=== PATIENT | male | born 1940 | race Caucasian/White ===

== ENCOUNTER 2017-08-11 08:56 | Inpatient (IN) | payer OTHER, MEDICARE ==
[~2017-08-11] VITALS: Ht 180.3 cm; Wt 113.7 kg
--- NOTE | ~2017-08-11 | EKG ---
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
--- NOTE | ~2017-08-11 | HC ---
[facility] [place] [address] CONSULTATION Name: KASEY SHER Room #: 361-P [facility] IN M.R.#: [id number] Admission: 08/11/17 Attend Phys: Elvie Kennedy Discharge: Date of : 42 Report #: [id number] THIS REPORT FOR: //name// CC: Elvie Mejía DATE OF SERVICE: 08/11/2017 CONSULTATION: Infectious diseases. HISTORY OF PRESENT ILLNESS: The patient is a 76-year-old gentleman admitted to the hospital this evening with complaint of dysuria, frequency and fever. This was associated with a cough, chest pain and also some redness of his left lower extremity. The patient was noted to be somewhat delirious and has nausea without any vomiting with some abdominal pain. In the ER, there was evidence of urinary tract infection and sepsis. The patient was admitted to the hospital and Infectious Disease consultation was requested. PAST MEDICAL HISTORY: Significant for diabetes with hypertension and hyperlipidemia. The patient has a past history of pneumonia and subdural hematoma. He has Parkinson's disease. PAST SURGICAL HISTORY: Includes appendectomy, cholecystectomy, craniotomy, coronary artery bypass grafting and coronary angioplasty. ALLERGIES: The patient has no drug allergies. MEDICATION RECONCILIATION: The patient's current medication include Tylenol 650 p.r.n., enteric-coated aspirin 81 mg at bedtime, Sinemet 25/250 two tablets q.i.d., Coreg 25 mg b.i.d., Rocephin 2 grams IV daily, p.r.n. glucagon, dextrose glucose, insulin lispro 10 units subcutaneous, morphine p.r.n., nitroglycerin p.r.n., Zofran p.r.n., MiraLax p.r.n., Brilinta 90 mg b.i.d., zolpidem 5 mg at bedtime p.r.n. FAMILY HISTORY: Noncontributory. 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 No history of alcohol. He says he quit smoking 40 years ago. REVIEW OF SYSTEMS: The patient notes fevers, chills, sweats, weakness, malaise. He is unaware of delirium or depressed mental status. The patient denies headache, sinus congestion, sore throat, trouble swallowing. The patient is not having any current chest pain, no history of angina, syncope. GASTROINTESTINAL: The patient has nausea, no vomiting, no abdominal pain. GENITOURINARY: The patient has frequency and dysuria. EXTREMITIES: [place] [address] CONSULTATION Name: KASEY SHER Room #: 361-P [facility] IN [facility].#: [id number] Admission: 08/11/17 Attend Phys: Elvie Kennedy Discharge: Date of : 42 Report #: [id number] PHYSICAL EXAMINATION: GENERAL: The patient appears his stated age, alert, oriented, comfortable, not in any distress. VITAL SIGNS: Showed temperature 37.7. SKIN: Shows chronic venous stasis changes. There is some mild erythema and warmth in the left lower extremity in the gaiter area. ENT: Negative. NECK: Supple. HEART: Sounds S1, S2. Regular rate and rhythm. LUNGS: Clear. ABDOMEN: Belly obese, soft, nontender. Flanks are nontender. No abdominal mass, no organomegaly. GENITOURINARY: The patient has a diaper because of urinary incontinence. NEUROLOGIC: The patient is mentally awake, alert and appropriate. LABORATORY DATA: White count was 18.2 with 6% bands, hemoglobin 12, hematocrit 35%, platelets 130,000. Electrolytes were normal, BUN 29, creatinine 1.1. Liver function tests are normal. Glucose ranged from 115 to 190. The urinalysis does show 16 to 25 white cells, positive nitrites, leukocyte esterase, and greater than 30 bacteria on the microscopic dipstick. The chest x-ray shows minimal atelectasis. IMPRESSION: 1. Urinary tract infection with fever and delirium. 2. Mild cellulitis, left lower leg. 3. Angina, resolved. The patient has been started on Rocephin, which is appropriate. I would like to add a single dose of gentamicin pending results of urine and blood cultures. Should the patient develop more fever, we can repeat blood cultures, I want to do a followup CBC and BMP in the morning. I would like to check coagulation studies because of the sepsis. I anticipate the patient will improve with intensive antibiotic therapy. After we have results of the urine culture, we may be able to streamline antibiotic therapy. I appreciate the opportunity of input in the care of this pleasant gentleman. Thank you for requesting Infectious Disease input. By: [id number] Dieter Umaña MD /erika
[~2017-08-11 08:56] MED LIST: ALLERGY REL1 MG/1 ML PO; ANTIFUNGAL30 GM TP; APAP500 PO; APIDRA PO; ASPIRIN81 M2 PO; B12INJ PO; BRILINTA90 MG PO; CALCIUM 600 +1 EAC1 PO; CARBIDOPA-LEVO1 EAC5 PO; CLARINEX5 MG PO; COREG25 MG PO; GLIPIZIDE XL5 MG PO; GLUCOPHAGE850 MG PO; GLUCOTROL5 MG PO; IMDUR 30 MG TAB30 M1 PO; IMDUR 60 MG TAB60 M1 PO; INDAPAMIDE1.25 MG PO; K-DUR 20 MEQ T20 MEQ PO; KEFLEX500 MG PO; LEVEMIR SUBQ; LIPITOR 20 MG T20 M1 PO; LODOSYN 25 MG T25 M1 PO; LOTENSIN20 MG PO; LOTREL 10-40 M1 EACH PO; MINITRAN1 EAC1 TOP; MIRAPEX1 MG PO; MOBIC7.5 MG PO; NITROSTAT0.4 M1 SUBLING; NORCO 5-325 TA1 EACH PO; NOVOLOG100 UNIT/1 SUBQ; PENICILLIN V P500 MG PO; POTASSIUM20 PO; RANEXA500 MG PO; TAMSULOSIN HCL0.4 MG PO; TOPROL XL100 MG PO; TRAMADOL 50 MG50 MG PO; TRESIBA FL100 UNIT/1 SUBQ; VICTOZA0.6 MG/0.1 SQ; VITAMIN D32000 UNI1 PO; ZOCOR40 MG PO; ZOFRAN4 MG PO
[2017-08-11 09:01] VITALS: BP 145/65
[2017-08-11 10:00] LABS: HEMATOCRIT 35.4 % (42.0-52.0); MCH 31.8 pg (26.0-34.0); MCV 93.5 fL (80.0-100.0); PLATELET COUNT 130 thou/uL (150-400); RBC 3.78 mil/uL (4.50-6.00); RDW 13.8 % (10.5-14.5); WBC 18.2 thou/uL (4.0-11.0)
[2017-08-11 10:01] LABS: MANUAL DIFF YES
[2017-08-11 10:08] LABS: CALCIUM 8.8 mg/dL (8.5-10.1); CREATININE 1.1 mg/dL (0.7-1.3); POTASSIUM 4.7 mmol/L (3.5-5.1)
[2017-08-11 10:14] LABS: ALBUMIN 3.5 g/dL (3.4-5.0); TOTAL BILIRUBIN 0.6 mg/dL (<0.1-1.0); TOTAL PROTEIN 6.6 g/dL (6.4-8.2)
[2017-08-11 10:30] LABS: ABSOLUTE NEUTROPHILS 16.4 thou/uL (1.4-8.2); PLATELET ESTIMATE NORMAL; TOTAL CELL COUNT 100
[2017-08-11 10:30] LABS: URINE BILIRUBIN NEGATIVE (Negative); URINE BLOOD 1+ (Negative); URINE COLOR YELLOW; URINE GLUCOSE-RANDOM* NEGATIVE (Negative); URINE KETONES NEGATIVE (Negative); URINE NITRITE POSITIVE (Negative); URINE PROTEIN (DIPSTICK) NEGATIVE (Negative); URINE SPECIFIC GRAVITY 1.015 (1.005-1.035); URINE UROBILINOGEN 0.2 E.U./dl (0.2-1.0)
[2017-08-11 10:39] LABS: BACTERIA >30 Many /HPF (None Seen); CASTS None Seen /LPF (None Seen); CRYSTALS None Seen /LPF (None Seen); SQUAMOUS None Seen /LPF (0-3); URINE RBC 3-10 Few /HPF (0-2)
[2017-08-11 10:48] VITALS: BP 138/66
[2017-08-11 11:19] VITALS: BP 138/70
[2017-08-11 11:48] LABS: ABG SAMPLE TYPE ARTERIAL; BE(vivo) 0.5 mmol/L (-2 to +3); HCO3 23.9 mmol/L (22.0-26.0); LACTATE 1.45 mmol/L (0.5-2.0); O2(CT) 15.3 mL/dL (15.0-23.0); O2Hb 93.5 % (92.0-98.0); PCO2 34.1 mmHg (35.0-45.0); PO2 75.1 mmHg (80.0-100.0); pH 7.463 (7.360-7.450); sO2 95.9 % (92.0-98.0); tCO2 24.9 mmol/L (24.0-30.0)
[2017-08-11 11:49] LABS: STICK SITE L.RADIAL
[2017-08-11 12:04] VITALS: BP 152/75
[2017-08-11 15:51] VITALS: BP 171/73
[2017-08-11 19:17] VITALS: BP 101/36
[2017-08-12 04:30] VITALS: BP 150/47
[2017-08-12 06:32] LABS: HEMATOCRIT 32.2 % (42.0-52.0); HEMOGLOBIN 10.9 gm/dL (14.0-18.0); MCH 31.9 pg (26.0-34.0); MCHC 33.9 g/dL (28.0-37.0); MCV 94.2 fL (80.0-100.0); PLATELET COUNT 111 thou/uL (150-400); RBC 3.42 mil/uL (4.50-6.00); RDW 14.3 % (10.5-14.5); WBC 12.7 thou/uL (4.0-11.0)
[2017-08-12 06:37] LABS: MANUAL DIFF YES
[2017-08-12 06:44] LABS: APTT 44.4 Seconds (24.5-32.8); PROTIME 10.7 Seconds (9.3-11.4)
[2017-08-12 06:51] LABS: CALCIUM 8.1 mg/dL (8.5-10.1); CREATININE 0.8 mg/dL (0.7-1.3); POTASSIUM 3.9 mmol/L (3.5-5.1)
[2017-08-12 07:25] LABS: ABSOLUTE NEUTROPHILS 11.4 thou/uL (1.4-8.2); PLATELET ESTIMATE NORMAL; TOTAL CELL COUNT 100
[2017-08-12 20:45] VITALS: BP 161/56
[2017-08-13 05:10] VITALS: BP 179/59
[2017-08-13 05:48] LABS: HEMATOCRIT 34.9 % (42.0-52.0); HEMOGLOBIN 11.8 gm/dL (14.0-18.0); MCH 31.8 pg (26.0-34.0); MCHC 33.8 g/dL (28.0-37.0); MCV 93.9 fL (80.0-100.0); PLATELET COUNT 126 thou/uL (150-400); RBC 3.72 mil/uL (4.50-6.00); RDW 13.9 % (10.5-14.5)
[2017-08-13 05:56] LABS: MANUAL DIFF YES
[2017-08-13 06:04] LABS: CALCIUM 8.6 mg/dL (8.5-10.1); CREATININE 0.8 mg/dL (0.7-1.3); POTASSIUM 3.9 mmol/L (3.5-5.1)
[2017-08-13 07:15] VITALS: BP 176/51
[2017-08-13 07:40] LABS: ABSOLUTE NEUTROPHILS 6.6 thou/uL (1.4-8.2); ATYPICAL LYMPHS 1 %; TOTAL CELL COUNT 100
[2017-08-13] MEDS ORDERED: CEFUROXIME500 MG PO (09:54)
[2017-08-13 10:18] VITALS: BP 176/51
== END 2017-08-13 12:01 | disposition home or self-care (01) | DRG 871 ==
LOC: ER 08:56 → EROBS 10:46 → 3W 10:46 → ENTRNSPT 08-13 11:17 → EDTRNSPTSTS 08-13 11:22 → 3W 08-13 12:01
PROVIDERS: Hospitalist; Internal Medicine Infectious Disease; Physician Assistant
DX: A41.9 Sepsis, unspecified organism (principal); G93.40 Encephalopathy, unspecified; N39.0 Urinary tract infection, site not specified; L03.116 Cellulitis of left lower limb; G20 Parkinson's disease; I10 Essential (primary) hypertension; E78.5 Hyperlipidemia, unspecified; G47.33 Obstructive sleep apnea (adult) (pediatric); E11.9 Type 2 diabetes mellitus without complications; I20.9 Angina pectoris, unspecified; Z95.1 Presence of aortocoronary bypass graft; Z90.49 Acquired absence of other specified parts of digestive tract; Z95.5 Presence of coronary angioplasty implant and graft; Z79.899 Other long term (current) drug therapy
CPT/HCPCS: 10879

== ENCOUNTER → 2017-09-03 | Outpatient (CLI) | payer OTHER, MEDICARE ==
[~2017-09-03] MED LIST changes: +CEFUROXIME500 MG PO; +FLOMAX0.4 MG PO; +KEFLEX500 M1 PO
== END ==
LOC: SLEEPLAB 11:23
DX: G47.33 Obstructive sleep apnea (adult) (pediatric) (principal)

== ENCOUNTER 2017-11-16 11:24 | Inpatient (IN) | payer OTHER, MEDICARE ==
[~2017-11-16] VITALS: Ht 160 cm; Wt 112.9 kg
--- NOTE | ~2017-11-16 | EKG ---
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
[~2017-11-16 11:24] MED LIST changes: -FLOMAX0.4 MG PO; -KEFLEX500 M1 PO
[2017-11-16 11:34] VITALS: BP 140/65
[2017-11-16 12:37] LABS: ABSOLUTE NEUTROPHILS 11.5 thou/uL (1.4-8.2); BASOPHILS 0.2 % (0.0-2.0); EOSINOPHILS 0.2 % (0.0-3.0); HEMATOCRIT 37.6 % (42.0-52.0); HEMOGLOBIN 12.7 gm/dL (14.0-18.0); LYMPHOCYTES 3.3 % (24.0-44.0); MCH 31.6 pg (26.0-34.0); MCHC 33.8 g/dL (28.0-37.0); MCV 93.3 fL (80.0-100.0); MONOCYTES 5.6 % (1.0-8.0); PLATELET COUNT 100 thou/uL (150-400); POLYS 90.7 % (36.0-66.0); RBC 4.03 mil/uL (4.50-6.00); RDW 13.9 % (10.5-14.5); WBC 12.7 thou/uL (4.0-11.0)
[2017-11-16 12:47] LABS: ANION GAP 9 mmol/L (7-16); BUN 29 mg/dL (7-18); CALCIUM 9.1 mg/dL (8.5-10.1); CHLORIDE 100 mmol/L (98-107); CO2 25 mmol/L (21-32); CREATININE 1.1 mg/dL (0.7-1.3); GLUCOSE 185 mg/dL (74-106); POTASSIUM 4.6 mmol/L (3.5-5.1); SODIUM 134 mmol/L (136-145)
[2017-11-16 12:55] LABS: ALBUMIN 3.6 g/dL (3.4-5.0); SGOT 16 U/L (15-37); SGPT 15 U/L (30-65); TOTAL BILIRUBIN 0.7 mg/dL (<0.1-1.0); TOTAL PROTEIN 6.7 g/dL (6.4-8.2); TROPONIN-I < 0.04 ng/mL (<0.06)
[2017-11-16 13:23] LABS: URINE BILIRUBIN NEGATIVE (Negative); URINE BLOOD NEGATIVE (Negative); URINE COLOR YELLOW; URINE GLUCOSE-RANDOM* TRACE (Negative); URINE KETONES TRACE (Negative); URINE LEUKOCYTES 3+ (Negative); URINE NITRITE NEGATIVE (Negative); URINE PROTEIN (DIPSTICK) TRACE (Negative); URINE SPECIFIC GRAVITY 1.025 (1.005-1.035); URINE UROBILINOGEN 0.2 E.U./dl (0.2-1.0)
[2017-11-16 13:27] LABS: URINE CLARITY SL CLOUDY
[2017-11-16 13:39] LABS: CASTS None Seen /LPF (None Seen); SQUAMOUS 0-3 Few /LPF (0-3)
[2017-11-16 13:40] LABS: BACTERIA >30 Many /HPF (None Seen); CRYSTALS None Seen /LPF (None Seen); URINE RBC None Seen /HPF (0-2); URINE WBC >25 Many /HPF (0-5)
[2017-11-16 13:41] LABS: WBC CLUMPS Occasional (None Seen)
[2017-11-16 15:08] VITALS: BP 115/49
[2017-11-16 15:22] VITALS: BP 118/47
[2017-11-16 16:30] VITALS: BP 129/60
[2017-11-16 20:00] VITALS: BP 131/58
[2017-11-17 03:31] LABS: CALCIUM 8.7 mg/dL (8.5-10.1); CREATININE 0.7 mg/dL (0.7-1.3); POTASSIUM 4.2 mmol/L (3.5-5.1)
[2017-11-17 04:22] VITALS: BP 147/67
[2017-11-17 07:33] LABS: HEMATOCRIT 33.8 % (42.0-52.0); HEMOGLOBIN 11.5 gm/dL (14.0-18.0); MCH 31.7 pg (26.0-34.0); MCV 93.2 fL (80.0-100.0); RBC 3.62 mil/uL (4.50-6.00); RDW 13.8 % (10.5-14.5); WBC 9.5 thou/uL (4.0-11.0)
[2017-11-17 18:19] VITALS: BP 155/54
[2017-11-17 19:34] VITALS: BP 126/48
[2017-11-18 04:21] VITALS: BP 168/56
[2017-11-18 07:30] VITALS: BP 137/74
[2017-11-18] MEDS ORDERED: KEFLEX500 M1 PO (08:24)
[2017-11-18] MEDS ORDERED: FLOMAX0.4 MG PO (08:32)
[2017-11-18 10:25] VITALS: BP 137/74
== END 2017-11-18 13:08 | disposition home or self-care (01) | DRG 871 ==
LOC: ER 11:24 → 4E 14:05 → EROBS 14:05 → 4E 15:26 → ENTRNSPT 11-18 11:30 → EDTRNSPTSTS 11-18 11:32 → 4E 11-18 13:08
PROVIDERS: Hospitalist; Nurse Practitioner Family
DX: A41.9 Sepsis, unspecified organism (principal); G93.40 Encephalopathy, unspecified; N39.0 Urinary tract infection, site not specified; G20 Parkinson's disease; I10 Essential (primary) hypertension; E78.5 Hyperlipidemia, unspecified; E11.9 Type 2 diabetes mellitus without complications; I25.10 Atherosclerotic heart disease of native coronary artery without angina pectoris; Z95.5 Presence of coronary angioplasty implant and graft; Z95.1 Presence of aortocoronary bypass graft; Z90.49 Acquired absence of other specified parts of digestive tract; Z79.82 Long term (current) use of aspirin; Z79.899 Other long term (current) drug therapy
CPT/HCPCS: 10183

== ENCOUNTER 2018-07-23 09:54 | Inpatient (IN) | payer OTHER, MEDICARE ==
[~2018-07-23] VITALS: Ht 180.3 cm; Wt 105.7 kg
--- NOTE | ~2018-07-23 | H ---
[facility] [place] [address] HISTORY AND PHYSICAL Name: KASEY SHER Room #: 516-1 ADM IN ..#: [id number] Admission: 07/24/18 Attend Phys: Saurabh Gold MD Discharge: Date of : 42 Report #: [id number] THIS REPORT FOR: //name// CC: Saurabh Ray DATE OF SERVICE: 07/24/2018 POSTADMISSION PHYSICIAN EVALUATION HISTORY OF PRESENT ILLNESS: Please see Dr. Renetta Angeles's full dictation. The patient was originally treated at [facility], was noted to have severe lumbar spinal stenosis with lumbar radiculopathy and bilateral lower extremity weakness. He underwent L3 through L4 and L4 through L5 bilateral laminectomies, foraminotomies, and diskectomies on 07/21/2018 at [facility]. His course was complicated by premorbid Parkinson's disease as well as diabetes mellitus type 2 with peripheral neuropathy. He did have urinary retention postoperatively and is status post Roche catheter placement. He has had an overall significant decline in his functional independence and had been ambulatory without gait aids up until about a month prior to his surgery. He then began using the walker when is having more and more problems with his overall functional mobility and ADLs. He continues to have a significant decline and has now been admitted for acute in-hospital inpatient rehabilitation. PAST MEDICAL HISTORY: Parkinson's disease, lumbar spinal disease, obstructive sleep apnea, GERD, retinal detachment in 2016, blind left eye, had a subdural hematoma in 2008, diabetes mellitus type 2, and peripheral neuropathy. Past surgical history is as noted along with habits, code status, and allergies. MEDICATIONS: Please see the full medication listing. This includes vitamins, herbals, and supplements. SOCIAL HISTORY: As above. PHYSICAL EXAMINATION: GENERAL: A pleasant, obese white male in no obvious distress. Weight 233 pounds, respirations 18, blood pressure noted to be 171/55. VITAL SIGNS: Temperature 98.1. He is alert and oriented, follows basic 1 step commands. He is on room air. Some evidence of masked facies. EOMs otherwise appeared full. Facies were symmetric. CHEST: Sounded clear to auscultation. CARDIOVASCULAR: Regular rate and rhythm. ABDOMEN: Obese. He does have morbid obesity, bowel sounds are positive, soft, nontender. He has the indwelling Roche catheter. [facility] [address] [place] [address] HISTORY AND PHYSICAL Name: KASEY SHER Room #: 516-1 ADM IN .R.#: [id number] Admission: 07/24/18 Attend Phys: Saurabh Gold MD Discharge: Date of : 41 Report #: [id number] NEUROLOGIC: I had him rolled onto his left side with assistance and the back incision is fairly small and appears to be intact. It is open to the air. There is no drainage. No evidence of erythema. Lower extremities, functional range of motion. Strength is probably grade 3+ to 4-/5. Upper extremities functional range of motion, strength is grade 4-/5. He does have some cogwheeling elbows and wrists and has some resting tremor. ASSESSMENT: A 77-year-old white male with the following problem list: 1. Severe lumbar spinal stenosis with lumbar radiculopathy with bilateral lower extremity weakness. 2. Status post L3 through L4 and L4 through L5 bilateral laminectomies, foraminotomies, and diskectomies on 07/21/2018 at [facility]. 3. Parkinson's disease. He is on Sinemet. 4. Diabetes mellitus with peripheral neuropathy. 5. Hypertension. 6. Coronary artery disease. 7. Urinary retention, status post Roche catheter. 8. Obstructive sleep apnea. 9. Obesity. 10. Legally blind left eye. PLAN: The patient is admitted for acute in-hospital inpatient rehabilitation. From a postadmission physician evaluation perspective, there are no relevant changes since the preadmission screening. See the above review of prior and current medical and functional conditions and comorbidities. Please see the patient's previous and current functional status. As far as risk of complications, he has the multiple medical comorbidities as noted above. Initial plan of care involves the interdisciplinary acute inpatient rehabilitation program with the goal of maximizing the patient's functional independence, so he can hopefully return back to his prior living situation. Measurable functional goals would be for the patient to become modified independent with transfers, mobility, ADLs, so that he can return back to the home setting. Goals to be up with the walker. Prognosis is reasonably good with estimated length of stay probably 10 days to 2 weeks and likely longer if warranted. Potential barriers would include his multiple medical comorbidities and decreased functional status. The patient meets diagnostic criteria for an acute in-hospital inpatient rehabilitation stay. He meets the medical necessity criteria and we will have the managed services consultant physicians continue to follow. He does have the tolerance for therapies and has appropriate discharge goals back to the home setting. <ELECTRONICALLY SIGNED> By: Saurabh Gold MD 07/31/18 1454 0903 0942 Suarabh Gold MD /nt
--- NOTE | ~2018-07-23 | PLAN ---
[facility] [address] [place] [address] REHAB UNIT PLAN OF CARE Name: KASEY SHER Room #: 516-1 ADM IN M.R.#: [id number] Admission: 07/24/18 Attend Phys: Saurabh Gold MD Discharge: Date of : 41 Report #: [id number] THIS REPORT FOR: //name// CC: Saurabh Ray DATE OF SERVICE: 07/26/2018 PROGRESS NOTE AND OVERALL PLAN OF CARE SUBJECTIVE: The patient was seen earlier. Last recorded temperature was 36.6, pulse was 70, respirations 18, and blood pressure was 140/70. He was groggy, but cooperative. He has been working in therapies with transfers, max assist of 2, bed to wheelchair. He has not been ambulatory. Bed mobility has been max assist of 2. In occupational therapy, lower body dressing is max assist. He does have a tremor with his Parkinson's. He is significantly obese. ASSESSMENT: 1. Severe lumbar spinal stenosis with lumbar radiculopathy with bilateral lower extremity weakness. 2. Status post L3 through L4 and L4 through L5 bilateral laminectomies, foraminotomies, and diskectomies on 07/21/2018 at [facility]. 3. Parkinson's disease. 4. Diabetes mellitus with peripheral neuropathy. 5. Hypertension. 6. Coronary artery disease. 7. Urinary retention, status post Roche catheter. 8. Obstructive sleep apnea. 9. Obesity. 10. Legally blind, left eye. PLAN: Roche was actually found on the floor and he is now starting to try to void. This is being monitored. The hospitalist service is involved. The overall plan of care is based on the preadmission screen, post-admission physician evaluation, and information garnered from therapy assessments. 1. Estimated length of stay is probably 2-3 weeks as he is at a significantly lower functional level. 2. Medical prognosis is reasonably good. 3. Anticipated interventions includes the interdisciplinary acute inpatient rehabilitation program. 4. Anticipated functional outcomes would be for the patient to initially become at least independent hopefully at a wheelchair level and we will need to see how he progresses from there. 5. Discharge destination would be back to the home setting, where he lives with his . [address] [address] REHAB UNIT PLAN OF CARE Name: KASEY SHER Room #: 516-1 ADM IN .R.#: [id number] Admission: 07/24/18 Attend Phys: Saurabh Gold MD Discharge: Date of : 41 Report #: [id number] 6. Expected therapy by discipline includes PT and OT 1-1/2 hours per day each five days a week throughout the duration of the acute inpatient rehabilitation stay. <ELECTRONICALLY SIGNED> By: Saurabh Gold MD 08/07/18 1144 1242 0211 Saurabh Gold MD /PMT
--- NOTE | ~2018-07-23 | H ---
[facility] [place] [address] HISTORY AND PHYSICAL Name: KASEY SHER Room #: 516-1 [facility] IN .R.#: [id number] Admission: 07/24/18 Attend Phys: Saurabh Gold MD Discharge: 08/07/18 Date of : 41 Report #: [id number] THIS REPORT FOR: //name// CC: Saurabh Leepaco Atkinsonxavi DATE OF SERVICE: 07/24/2018 HISTORY OF PRESENT ILLNESS: This is a 77-year-old male who is now admitted to acute inpatient rehabilitation facility at [facility]. The patient presented on 07/21/2018 to [facility] for an elective neurosurgical procedure of L3 through L4 and L4 through L5 bilateral laminectomies, foraminotomies and diskectomies with Dr. Lundberg, Neurosurgery. He had progressive chronic low back pain with radicular symptoms. His sitting and standing tolerance was significantly impaired. He had a significant decline prior to admission over the past few weeks at home where he required the use of a rollator. He had increase in falls and urinary incontinent episodes. The patient tolerated the operation well with no complications. Pain was adequately controlled with Tylenol. His Roche catheter was initially discontinued. But due to urinary retention, it was replaced. He still has a significant impairment in his functional mobility for which he is admitted to [address] [place] [address] for physical and occupational therapies. Today, the patient reports weakness. He denies dizziness or headache. He denies cough, shortness of air, or chest pain. He denies nausea or abdominal pain. He has not had a bowel movement since prior to surgery. He has a good appetite. He denies dysuria. He has back pain and pain down bilateral legs, right greater than the left. He has some numbness in his feet, but denies significant complaints of that. He does have tremors from his Parkinson's. PAST MEDICAL HISTORY: Parkinson disease, lumbar spinal disease, obstructive sleep apnea, GERD, retinal detachment in 2015. He is blind in his left eye, BPH, subdural hematoma in 2008, type 2 diabetes, peripheral neuropathy, hyperlipidemia, hypertension, coronary artery disease. PAST SURGICAL HISTORY: Lumbar surgery, 07/21/2018; jayde hole, 2008; CABG x 3 in 1993; cholecystectomy, 1997; appendectomy, 1970. HABITS: He is a nondrinker. No illicit drug use. He is a never tobacco smoker. CODE STATUS: Full code. SOCIAL HISTORY: The patient lives in a ranch-style house with his . There are 2 steps to enter, all living is on one level. He does have basement laundry, his was doing premorbidly. Prior to approximately one month ago, he was using no device to ambulate around or in the community. Since then, he [address] [address] HISTORY AND PHYSICAL Name: KASEY SHER Room #: 516-1 [facility] IN ..#: [id number] Admission: 07/24/18 Attend Phys: Saurabh Gold MD Discharge: 08/07/18 Date of : 41 Report #: [id number] has started using a roller walker. 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 He does have 2 adult children who also live with him and his and can provide assistance at home as needed. provided the IADLs and patient was able to perform his own ADLs, however had been struggling few weeks prior to his surgery. ALLERGIES: No known drug allergies. CURRENT MEDICATIONS: Aspirin 81 mg daily, Lipitor 20 mg daily, Lotensin 5 mg daily. Sinemet 25/250 two tablets 4 times a day, carvedilol 25 mg twice a day, Colace 100 mg twice a day, gabapentin 300 mg twice a day and 300 mg at bedtime, glipizide 5 mg daily, Lozol 1.25 mg daily, Claritin 10 mg daily, Mobic 7.5 mg daily, metformin 850 mg four times a day, nitroglycerin 0.4 mg p.r.n., Percocet 5/325 two tablets q.4 hours p.r.n., MiraLax 17 grams daily as needed, Mirapex 1 mg 3 times a day, Ranexa 500 mg twice a day, Azilect 1 mg daily, senna-S at bedtime, Flomax 0.4 mg daily. REVIEW OF SYSTEMS: Remainder of his 14-point review of systems is negative except as listed in HPI. PHYSICAL EXAMINATION: VITAL SIGNS: Weight 233 pounds, blood pressure 170s/80s, respirations 18. GENERAL: He is awake, alert. He is oriented x 4. He is in no acute distress. He is on room air. HEAD: Normocephalic. He had previous contusion to his head from fall prior to admission. EYES: EOMs are intact. No icterus. ENT: No sinus tenderness. No pharyngitis. CHEST: Lungs are clear to auscultation bilaterally. No crackles, no wheeze. CARDIAC: S1, S2, regular rate and rhythm. ABDOMEN: Morbid obesity. Bowel sounds are positive, soft, nontender, nondistended. GENITOURINARY: No CVA tenderness. SPINE: He has a lumbar spinal incision open to air. There is no drainage. Skin surrounding the incision is intact with no warmth or erythema or drainage. He does have a thoracic level bruise from a premorbid fall per 's report. EXTREMITIES: Functional range of motion in bilateral upper and lower extremities. He does have a tremor. No cogwheeling noted. Upper extremity strength grossly 4/5. Bilateral lower extremities, able to lift antigravity off the bed. Negative Homans sign or footdrop. Right lower extremity weaker greater than the left. Grossly, sensation appears intact to light touch. The patient able to log roll in bed, standby assist. He has not ambulated yet since surgery. SKIN: As noted above. PSYCHIATRIC: Pleasant affect. The patient is very motivated, wanting to get stronger. [facility] [address] [place] [address] HISTORY AND PHYSICAL Name: CHRISTOSKASEY Room #: 516-1 [facility] IN ..#: [id number] Admission: 07/24/18 Attend Phys: Saurabh Gold MD Discharge: 08/07/18 Date of : 41 Report #: [id number] NEUROLOGIC: Cranial nerves 2-12 grossly intact. Facies equal, symmetrical. No slurred speech. He is soft spoken, probably secondary to his Parkinson's. ASSESSMENT: 1. Severe lumbar spinal stenosis status post L3 through L4 and L4 through L5 bilateral laminectomies, foraminotomies and diskectomies on 07/21/2018. 2. Lumbar radiculopathy with bilateral lower extremity weakness. 3. Parkinson disease. 4. Type 2 diabetes with peripheral neuropathy. 5. Hypertension. 6. Coronary artery disease. 7. Urinary retention status post Roche catheter. 8. Obstructive sleep apnea. 9. Legally blind, left eye. 10. Hyperlipidemia. 11. History of subdural hematoma. PLAN: The patient has been admitted to acute inpatient rehab unit for physical and occupational therapies. We will consult hospitalist services for acute medical management and Dr. Murray for neuropsychology testing. The patient is on a carbohydrate controlled diet. He will have a team conference next Saturday. Please see extensive orders. <ELECTRONICALLY SIGNED> By: ROB Hansen 08/08/18 1508 1531 1628 ROB Hansen /nt
--- NOTE | ~2018-07-23 | HC ---
[facility] [place] [address] CONSULTATION Name: KASEY SHER Room #: 516-1 ADM IN M.R.#: [id number] Admission: 07/24/18 Attend Phys: Saurabh Gold MD Discharge: Date of : 42 Report #: [id number] THIS REPORT FOR: //name// CC: Saurabh Gold Aggie Ray DATE OF SERVICE: 07/26/2018 NEUROBEHAVIORAL STATUS EXAM: ATTENDING PHYSICIAN: Saurabh Gold MD. AUXILIARY PLANT OPERATOR: Harjit Murray, PhD. CLINICAL PRESENTATION: The patient is a 77-year-old male admitted to the rehab unit at [facility] for a comprehensive inpatient rehabilitation program to improve functional mobility, activities of daily living and self-care and mental status secondary to a severe lumbar spinal stenosis, status post L3 through L4 and L4 through L5 bilateral laminectomies, foraminotomies and diskectomies on 07/21/2018. Diagnoses include lumbar radiculopathy with bilateral lower extremity weakness, Parkinson's disease, type 2 diabetes with peripheral neuropathy, hypertension, coronary artery disease, urinary retention, status post Roche catheter, obstructive sleep apnea, blind with the left eye, hyperlipidemia and a history of subdural hematoma. A complete description of his medical condition and history along with medications can be found in his medical record. Neuropsychological consultation was requested to provide assistance in the assessment of cognitive and emotional status and to provide recommendations and services. Prior to this most recent admission, he was living independently with his in their home. The patient had not driven for approximately 3 years because of Parkinson's disease. He was independent with basic and most instrumental activities of daily living. 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 The patient has 4 children and 9 grandchildren. He does not have a history of treatment for depression or anxiety. There are no problems with alcohol or drug abuse. TECHNIQUES UTILIZED: Clinical interview, review of medical records, staff consultation and behavioral observation, mini mental status exam 2 standard version, clock drawing, category and letter fluency and family interview -- . EXAMINATION FINDINGS: The patient was alert and cooperative with the assessment. He presents with severe difficulty in verbal expression. He had [facility] [address] [address] CONSULTATION Name: KASEY SHER Room #: 516-1 ADM IN .R.#: [id number] Admission: 07/24/18 Attend Phys: Saurabh Gold MD Discharge: Date of : 42 Report #: [id number] difficulty with verbal fluency and often relied on his to assist in the description of his recent history as well as pertinent background information. Difficulty with word finding and memory are described as having been present within the last year, but worse since his surgery. Processing speed is slow. Sleep is described as inconsistent. Appetite is within normal limits. The patient describes parkinsonian symptoms that include freezing as if his feet are stuck when trying to walk. His describes a period of confusion and disorientation several days ago. The patient having had visual hallucinations have been intermittent, but more frequent recently. Apparently, he had a period of delirium that is associated with a UTI prior to his admission. He is not reporting subjective anxiety or depression. His does not report him as appearing depressed; however, the patient is anxious about his recovery. His performance on the MMSE 2 brief version is within normal limits with a raw score of 15 of 16. He was 3/3 for initial registration, 5/5 for orientation to time and place and 2/3 for immediate recall of 3 items after a brief time delay and distraction. His performance on the standard version of the MMSE 2 was in the low average range, suggesting mild to moderate impairment with a T score of 39 and percentile rank of 14. The patient was 2/5 for serial 7's. Slow processing is noted and he had much difficulty in sustaining concentration associated with serial 7's. He was 2/2 for naming, 1/1 for repetition, 3/3 for auditory comprehension. He could read and follow a single command. He was able to write a sentence. However, there is a hand tremor which interferes with copying. He was 0/1 for being able to accurately copy a simple geometric design. Letter fluency was extremely low with a raw score of 4. Category fluency was in the mild range/low average area of impairment with a raw score of 14 and a T score of 43. The patient had much difficulty with clock drawing and a delay in number placement as well as impairment in setting the hands at a specific time. The patient is presenting with variability in cognitive functioning. He is alert and oriented at this time. However, visual hallucinations are reported that may be associated with narcotic use for pain management. However, visual hallucinations can also been seen in Parkinsons disease. 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 Adjustment disorder with anxious mood. [facility] [address] [place] [address] CONSULTATION Name: KASEY SHER #: 516-1 ADM IN M.R.#: [id number] Admission: 07/24/18 Attend Phys: Saurabh Gold MD Discharge: Date of : 41 Report #: [id number] RECOMMENDATIONS: Reduce as medically appropriate and supervised, narcotic medication. His will need to assist with medication, finances and nutrition. The use of speech therapy will be helpful for cognitive rehabilitation and utilization of compensatory strategies for areas of decreased functioning. A followup neuropsychological assessment will be of benefit to clarify the severity of cognitive deficits as well as assist in the development of behavioral strategies for compensation. Noted is decreased processing speed and an impairment in thought organization and verbal expression. Thank you very much for allowing me to provide the consultation on this patient. <ELECTRONICALLY SIGNED> By: Harjit Murray, PhD 08/03/18 1357 [id number] 11 Harjit Murray, PhD /nt
--- NOTE | ~2018-07-23 | HC ---
[facility] [place] [address] CONSULTATION Name: KASEY SHER Room #: 516-1 ADM IN .R.#: [id number] Admission: 07/24/18 Attend Phys: Saurabh Gold MD Discharge: Date of : 41 Report #: [id number] THIS REPORT FOR: //name// CC: Saurabh Ray DATE OF SERVICE: 08/01/2018 CHIEF COMPLAINT: Surgical wound to the lumbar region. HISTORY OF PRESENT ILLNESS: This is a 77-year-old male patient who has undergone L3 through L5 bilateral laminectomies, diskectomies, foraminotomies by Dr. Lundberg, neurosurgeon at [facility]. He was admitted to acute rehabilitation. He is progressing with his rehabilitation care, but is noted to have some area of concern in his lumbar incision area. I have been asked to see him with regard to wound care. The patient states the area itches and he frequently finds some self-picking and scratching at the area. PAST MEDICAL HISTORY: Positive for lumbar spinal disease, obstructive sleep apnea, Parkinson's, gastroesophageal reflux, previous retinal detachment, previous subdural hematoma, type 2 diabetes mellitus, peripheral neuropathy, hyperlipidemia, coronary artery disease. SOCIAL HISTORY: The patient denies alcohol or tobacco use. FAMILY HISTORY: Noncontributory. REVIEW OF SYSTEMS: CONSTITUTIONAL: The patient denies fevers, chills or weight loss. NEUROLOGICAL: The patient denies focal weakness. Does have some numbness of his bilateral lower extremities. ENT: The patient denies earache, nasal drainage, sore throat. CARDIOVASCULAR: The patient denies chest pain, palpitations or diaphoresis. PULMONARY: The patient denies cough or shortness of breath. GASTROINTESTINAL: The patient denies nausea, vomiting or abdominal pain. ORTHOPEDIC: The patient is aware of the wound on his lumbar region. Denies pain or swelling of the extremities. Other systems in a 14-point review of systems are negative. PHYSICAL EXAMINATION: VITAL SIGNS: At this time include pulse rate 57, respiratory rate 18, blood pressure 132/56, temperature 98.2. GENERAL: This is a chronically ill-appearing male patient who appears to be in minimal distress. HEENT: Head normocephalic. Nose and throat are clear. NECK: Supple. [address] [address] CONSULTATION Name: KASEY SHER Room #: 516-1 ADM IN .R.#: [id number] Admission: 07/24/18 Attend Phys: Saurabh Gold MD Discharge: Date of : 41 Report #: [id number] LUNGS: Clear. HEART: Regular. ABDOMEN: Soft. Bowel sounds present. GENITOURINARY: The patient has a Roche catheter in place. SKIN: Lumbar region demonstrates what appears to be a mostly intact incision line. There is a little bit of moisture on the surface and slight superficial skin separation, but the deeper structures are all well intact. This area is nonerythematous and does not appear to be infected. NEUROLOGIC: The patient is alert and oriented and appropriate. LABORATORY DATA: Includes sodium 137, potassium 4.8, chloride 102, CO2 of 26, BUN 27, creatinine 0.9, glucose of 144, calcium is 8.9, total protein 6.7, albumin 3.6. White blood cell count is 5.0 with a hemoglobin of 10.9. CLINICAL IMPRESSION: 1. Surgical wound/incision to the lumbar spine region. 2. Diabetes mellitus. 3. Mild to moderate protein calorie malnutrition. 4. History of lumbar disk disease, status post laminectomies and foraminotomies, L3 through L5. RECOMMENDATIONS: At this point in time, we will place a bordered silver alginate surgical dressing over the incision line to be left in place for 3-4 days at a time. I think twice weekly dressing changes will be appropriate as needed for soiling, saturation or displacement. The patient will need ongoing aggressive nutritional support for maximizing wound healing and maintaining glycemic control. We will recommend continuation of all medications. I appreciate being asked to see him in consultation. <ELECTRONICALLY SIGNED> By: Randall New MD 08/04/18 0738 [id number] Randall New MD /nt
[~2018-07-23 09:54] MED LIST changes: +FLOMAX0.4 MG PO; +KEFLEX500 M1 PO
[2018-07-24] MEDS ORDERED: COLACE100 MG PO (12:28)
[2018-07-24] MEDS ORDERED: NEURONTIN 300300 M1 PO (12:29)
[2018-07-24] MEDS ORDERED: LORATIDINE 10 M10 M1 PO (12:36)
[2018-07-24] MEDS ORDERED: PERCOCET 5-3251 EACH PO (12:39)
[2018-07-24] MEDS ORDERED: MIRALAX17 GM PO (12:48)
[2018-07-24] MEDS ORDERED: RASAGILINE MESYL1 MG PO (12:49)
[2018-07-24] MEDS ORDERED: SENNA8.6 MG PO (12:51)
[2018-07-24 20:06] VITALS: BP 171/55
[2018-07-25 04:30] LABS: CALCIUM 8.7 mg/dL (8.5-10.1); CREATININE 0.8 mg/dL (0.7-1.3)
[2018-07-25 06:29] LABS: HEMATOCRIT 32.7 % (42.0-52.0); HEMOGLOBIN 10.9 gm/dL (14.0-18.0); MCH 31.1 pg (26.0-34.0); MCHC 33.4 g/dL (28.0-37.0); MCV 93.1 fL (80.0-100.0); RBC 3.52 mil/uL (4.50-6.00); RDW 13.9 % (10.5-14.5); WBC 4.5 thou/uL (4.0-11.0)
[2018-07-25 07:31] VITALS: BP 184/91
[2018-07-25 20:13] VITALS: BP 125/54
[2018-07-26 08:00] VITALS: BP 140/46
[2018-07-26 19:56] VITALS: BP 132/56
[2018-07-27 07:40] VITALS: BP 144/67
[2018-07-27 20:09] VITALS: BP 132/64
[2018-07-28 08:12] VITALS: BP 120/37
[2018-07-28 20:05] VITALS: BP 125/57
[2018-07-29 08:20] VITALS: BP 137/53
[2018-07-29 20:00] VITALS: BP 122/60
[2018-07-30 08:00] VITALS: BP 115/55
[2018-07-30 19:43] VITALS: BP 127/51
[2018-07-31 08:15] VITALS: BP 116/46
[2018-07-31 20:32] VITALS: BP 132/56
[2018-08-01 06:02] LABS: ABSOLUTE NEUTROPHILS 3.2 thou/uL (1.4-8.2); BASOPHILS 1.4 % (0.0-2.0); HEMATOCRIT 31.5 % (42.0-52.0); HEMOGLOBIN 10.9 gm/dL (14.0-18.0); LYMPHOCYTES 19.1 % (24.0-44.0); MCH 31.9 pg (26.0-34.0); MCHC 34.6 g/dL (28.0-37.0); MCV 92.4 fL (80.0-100.0); MONOCYTES 10.2 % (1.0-8.0); PLATELET COUNT 173 thou/uL (150-400); POLYS 63.3 % (36.0-66.0); RBC 3.41 mil/uL (4.50-6.00); RDW 13.6 % (10.5-14.5)
[2018-08-01 06:16] LABS: CALCIUM 8.9 mg/dL (8.5-10.1); CREATININE 0.9 mg/dL (0.7-1.3); MAGNESIUM 1.7 mg/dL (1.8-2.4); POTASSIUM 4.8 mmol/L (3.5-5.1)
[2018-08-01 08:27] VITALS: BP 140/65
[2018-08-01 20:42] VITALS: BP 163/68
[2018-08-02 07:50] VITALS: BP 143/53
[2018-08-02 20:25] VITALS: BP 141/52
[2018-08-03 07:50] VITALS: BP 166/73
[2018-08-03 20:00] VITALS: BP 121/56
[2018-08-04 05:48] LABS: ABSOLUTE NEUTROPHILS 3.8 thou/uL (1.4-8.2); EOSINOPHILS 5.4 % (0.0-3.0); HEMOGLOBIN 10.3 gm/dL (14.0-18.0); LYMPHOCYTES 19.4 % (24.0-44.0); MCH 30.9 pg (26.0-34.0); MCHC 33.4 g/dL (28.0-37.0); MCV 92.5 fL (80.0-100.0); MONOCYTES 9.3 % (1.0-8.0); PLATELET COUNT 157 thou/uL (150-400); POLYS 64.9 % (36.0-66.0); RBC 3.35 mil/uL (4.50-6.00); RDW 13.9 % (10.5-14.5); WBC 5.8 thou/uL (4.0-11.0)
[2018-08-04 05:58] LABS: CALCIUM 8.9 mg/dL (8.5-10.1); CREATININE 0.8 mg/dL (0.7-1.3); POTASSIUM 4.7 mmol/L (3.5-5.1)
[2018-08-04 06:45] VITALS: BP 159/72
[2018-08-04 08:15] VITALS: BP 148/65
[2018-08-04 20:01] VITALS: BP 124/58
[2018-08-05 09:01] VITALS: BP 133/48
[2018-08-05 15:53] VITALS: BP 133/83
[2018-08-05 20:30] VITALS: BP 138/55
[2018-08-06 09:17] VITALS: BP 121/47
[2018-08-06 12:13] VITALS: BP 121/47
[2018-08-06 20:19] VITALS: BP 108/47
[2018-08-07 08:43] VITALS: BP 107/40
[2018-08-07] MEDS ORDERED: TYLENOL325 MG PO (09:27)
[2018-08-07] MEDS ORDERED: FLOMAX0.4 MG PO (09:45)
[2018-08-07 11:11] VITALS: BP 121/47
[2018-08-07 12:08] VITALS: BP 121/47
[2018-08-07 12:40] VITALS: BP 121/47
== END 2018-08-07 14:22 | disposition home health service (06) | DRG 552 ==
LOC: ENTRNSPT 08-07 13:28 → EDTRNSPTSTS 08-07 13:32
PROVIDERS: Hospitalist; Nurse Practitioner; Nurse Practitioner Family; Physical Medicine & Rehabilitation
DX: M54.16 Radiculopathy, lumbar region (principal); E44.0 Moderate protein-calorie malnutrition; M48.061 Spinal stenosis, lumbar region without neurogenic claudication; G56.83 Other specified mononeuropathies of bilateral upper limbs; G20 Parkinson's disease; E11.42 Type 2 diabetes mellitus with diabetic polyneuropathy; I10 Essential (primary) hypertension; I25.10 Atherosclerotic heart disease of native coronary artery without angina pectoris; G47.33 Obstructive sleep apnea (adult) (pediatric); E66.9 Obesity, unspecified; R33.9 Retention of urine, unspecified; K21.9 Gastro-esophageal reflux disease without esophagitis; N40.1 Benign prostatic hyperplasia with lower urinary tract symptoms; R53.81 Other malaise; Z53.29 Procedure and treatment not carried out because of patient's decision for other reasons; L53.9 Erythematous condition, unspecified; K59.09 Other constipation; E78.5 Hyperlipidemia, unspecified; H54.62 Unqualified visual loss, left eye, normal vision right eye; Z68.32 Body mass index [BMI] 32.0-32.9, adult; Z95.1 Presence of aortocoronary bypass graft; Z90.49 Acquired absence of other specified parts of digestive tract
CPT/HCPCS: 10112; 50455

== ENCOUNTER 2018-08-11 12:48 | Emergency (ER) | payer OTHER, MEDICARE ==
[~2018-08-11] VITALS: Ht 180.3 cm; Wt 100.7 kg
[~2018-08-11 12:48] MED LIST changes: +COLACE100 MG PO; +LORATIDINE 10 M10 M1 PO; +MIRALAX17 GM PO; +NEURONTIN 300300 M1 PO; +PERCOCET 5-3251 EACH PO; +RASAGILINE MESYL1 MG PO; +SENNA8.6 MG PO; +TYLENOL325 MG PO
[2018-08-11 13:36] LABS: ABSOLUTE NEUTROPHILS 4.7 thou/uL (1.4-8.2); BASOPHILS 1.2 % (0.0-2.0); EOSINOPHILS 5.2 % (0.0-3.0); HEMATOCRIT 33.4 % (42.0-52.0); HEMOGLOBIN 11.3 gm/dL (14.0-18.0); LYMPHOCYTES 17.9 % (24.0-44.0); MCH 31.4 pg (26.0-34.0); MCHC 33.8 g/dL (28.0-37.0); MCV 92.6 fL (80.0-100.0); MONOCYTES 8.3 % (1.0-8.0); PLATELET COUNT 167 thou/uL (150-400); POLYS 67.4 % (36.0-66.0); RDW 14.1 % (10.5-14.5); WBC 6.9 thou/uL (4.0-11.0)
[2018-08-11 13:39] LABS: ANION GAP 9 mmol/L (7-16); BUN 27 mg/dL (7-18); CALCIUM 9.7 mg/dL (8.5-10.1); CHLORIDE 104 mmol/L (98-107); CO2 27 mmol/L (21-32); CREATININE 1.3 mg/dL (0.7-1.3); GLUCOSE 61 mg/dL (74-106); POTASSIUM 4.9 mmol/L (3.5-5.1); SODIUM 140 mmol/L (136-145)
[2018-08-11 13:48] LABS: TROPONIN-I <0.06 ng/mL (<0.06)
[2018-08-11 14:44] LABS: URINE BILIRUBIN NEGATIVE (Negative); URINE BLOOD 2+ (Negative); URINE CLARITY SL CLOUDY; URINE COLOR YELLOW; URINE GLUCOSE-RANDOM* NEGATIVE (Negative); URINE KETONES TRACE (Negative); URINE LEUKOCYTES-REFLEX 1+ (Negative); URINE NITRITE-REFLEX POSITIVE (Negative); URINE PROTEIN (DIPSTICK) TRACE (Negative); URINE SPECIFIC GRAVITY 1.025 (1.005-1.035); URINE UROBILINOGEN 0.2 E.U./dl (0.2-1.0)
[2018-08-11 14:52] LABS: BACTERIA-REFLEX >30 Many /HPF (None Seen); CASTS None Seen /LPF (None Seen); CRYSTALS None Seen /LPF (None Seen); SQUAMOUS None Seen /LPF (0-3); URINE RBC 3-10 Few /HPF (0-2); URINE WBC-REFLEX 6-15 Few /HPF (0-5)
[2018-08-11] MEDS ORDERED: KEFLEX500 M1 PO (16:25)
[2018-08-11 16:36] VITALS: BP 135/62
== END 2018-08-11 16:37 | disposition home or self-care (01) ==
LOC: ER 12:48
PROVIDERS: Emergency Medicine
DX: N39.0 Urinary tract infection, site not specified (principal); G20 Parkinson's disease; I10 Essential (primary) hypertension; E78.5 Hyperlipidemia, unspecified; E11.9 Type 2 diabetes mellitus without complications; Z90.49 Acquired absence of other specified parts of digestive tract; Z95.5 Presence of coronary angioplasty implant and graft

== ENCOUNTER → 2018-10-20 | Outpatient (CLI) | payer OTHER, MEDICARE | LOC: NUC 09:58 | DX: S92.354D Nondisplaced fracture of fifth metatarsal bone, right foot, subsequent encounter for fracture with routine healing (principal); M25.571 Pain in right ankle and joints of right foot; M47.814 Spondylosis without myelopathy or radiculopathy, thoracic region; M19.012 Primary osteoarthritis, left shoulder; M19.011 Primary osteoarthritis, right shoulder; X58.XXXD Exposure to other specified factors, subsequent encounter ==

== ENCOUNTER 2021-04-09 17:35 | Inpatient (IN) | payer OTHER, MEDICARE ==
[~2021-04-09] VITALS: Ht 180.3 cm; Wt 96.6 kg
[2021-04-09 17:44] VITALS: BP 143/64
[2021-04-09 18:28] LABS: ABSOLUTE NEUTROPHILS 8.4 thou/uL (1.4-8.2); BASOPHILS 0.4 % (0.0-2.0); EOSINOPHILS 1.2 % (0.0-3.0); HEMATOCRIT 36.2 % (42.0-52.0); MCH 30.9 pg (26.0-34.0); MCHC 33.3 g/dL (28.0-37.0); MCV 92.9 fL (80.0-100.0); MONOCYTES 8.3 % (1.0-8.0); PLATELET COUNT 105 thou/uL (150-400); POLYS 84.1 % (36.0-66.0); RDW 14.4 % (10.5-14.5)
[2021-04-09 18:42] LABS: CALCIUM 8.8 mg/dL (8.5-10.1); CREATININE 1.1 mg/dL (0.7-1.3); POTASSIUM 4.4 mmol/L (3.5-5.1)
[2021-04-09 18:56] LABS: ALBUMIN 3.6 g/dL (3.4-5.0); TOTAL BILIRUBIN 0.5 mg/dL (0.2-1.0); TOTAL PROTEIN 6.7 g/dL (6.4-8.2)
[2021-04-09 18:59] LABS: URINE BILIRUBIN NEGATIVE (Negative); URINE BLOOD 3+ (Negative); URINE CLARITY SL CLOUDY; URINE COLOR YELLOW; URINE GLUCOSE-RANDOM* NEGATIVE (Negative); URINE KETONES TRACE (Negative); URINE LEUKOCYTES-REFLEX 2+ (Negative); URINE NITRITE-REFLEX NEGATIVE (Negative); URINE PROTEIN (DIPSTICK) 2+ (Negative); URINE SPECIFIC GRAVITY 1.025 (1.005-1.035); URINE UROBILINOGEN 0.2 E.U./dl (0.2-1.0)
[2021-04-09 19:31] LABS: BACTERIA-REFLEX >30 Many /HPF (None Seen); SQUAMOUS 0-3 Few /LPF (0-3); URINE RBC >20 Many /HPF (NONE SEEN); URINE WBC-REFLEX >25 Many /HPF (0-5)
[2021-04-09 20:16] VITALS: BP 143/64
[2021-04-09 20:48] VITALS: BP 118/72
--- NOTE | 2021-04-10 03:16 | NUR ---
PT ARRIVED ON THE UNIT AT 2049. PT IS ALERT AND ORIENTED x4. PT IS STABLE AND VERY DROWSY. PT HAS BEEN SLEEPING AND IS VERY DIFFICULT TO AROUSE. ADMISSION WAS NOT COMPLETED BECAUSE PT COULD BARELY KEEP EYES OPENED. PT IS INCONTINET. PT IS TOLERATING RA. VS ARE SIGN ARE STABLE. MED WERE GIVEN PER EMAR ORDERS. FALL PRECAUTIONS IN PLACE WITH CALL LIGHT WITHIN REACH. WILL CONTINUE TO MONITOR.
--- NOTE | 2021-04-10 03:30 | NUR ---
I AGREE, WITH NOTES AND ASSESSMENTS OF BAR MOSS.
[2021-04-10 05:19] VITALS: BP 182/83
[2021-04-10 05:21] VITALS: BP 182/83
--- NOTE | 2021-04-10 08:27 | NUR ---
ASSESSMENT: CM REVIEWED CHART AND SPOKE WITH PT AND HIS CARLOS. PT WAS ADMITTED DUE TO UTI/WEAKNESS. PT IS ON IV ANBX AND IV FLUIDS. PT/OT EVALS ARE PENDING. PT LIVES IN A RANCH STYLE HOME WITH HIS AND TWO ADULT SONS. PT HAS ONE STEP TO ENTER THE HOME THROUGH THE GARAGE AND NO STEPS HE HAS TO USE ONCE INSIDE. REPORTS ABOUT 20 STEPS WITH HANDRAIL TO THE BASEMENT BUT REPORTS PT DOES NOT GO DOWN THERE. PT HAS A CANE AND WALKER AT HOME BUT USES A WALKER AT ALL TIMES. PT HAS HX OF PARKINSONS. PT HAS A GRAB BAR AND SHOWER BENCH AND IS ABLE TO PERFORM ADLS INDEPENDENTLY. PT NO LONGER DRIVES. PT HAS HAD PAST HX OF GOING TO [facility] AND HAVING [facility] IN THE PAST. PT/OT EVALS ARE PENDING BUT STATING THEY WOULD USE [facility] AGAIN IF NEEDED. CM WILL CONTINUE TO FOLLOW TO ASSIST NEEDED.
--- NOTE | 2021-04-10 11:32 | NUR ---
ASSUMED CARE OF PT AT 0700 THIS MORNING. PT WAS AN ADMIT OVERNIGHT FOR UTI, WEAKNESS AND FEVER. PT IS A/OX3 WITH SOME CONFUSION AT TIMES. SKIN INTACT WITH NO TENTING. RT EYE SHOWING BLOOD IN HE CORNEAL AREA WHICH IS BEING TREATED. PT HAS TREMORS DUE TO PARKINSON'S. ASSESSMENTS CHARTED AND OTHERWISE UNREMARKABLE. PT IS WORKING WITH OT AND PHYS THPY. IV IN RT AC WITH NS AT 100ML/HR. FALL PRECAUTIONS IN PLACE, CALL LIGHT AND OTHER NEEDS ARE WITHIN REACH. MEDS AND TX GIVEN NEEDED AND SCHEDULED. WILL MONITOR AND NOTE ANY CHANGES.
[2021-04-10 15:47] VITALS: BP 120/53
[2021-04-10 19:13] VITALS: BP 125/56
--- NOTE | 2021-04-11 03:37 | NUR ---
ASSUMED PT CARE AT 1920.PT IS ALERT AND ORIENTED. PT CAN BE FORGETUL SOMETIMES. PT IS ABLE TO USE CALL LIGHT TO VERBALIZE NEEDS. PT IS UPX1 TO THE BSC. PT IS PLEASANT AND COOPERATIVE. PT HAS EXTERNAL CATH IN PLACE WHICH IS PATENT. PT IS TOLERATING RA. PT DID NOT VERBALIZE ANY CONCERNS AND NO VISIBLE SIGNS OF DSITRESS WAS NOTED. FALL PRECAUTIONS IN PLACE. WILL CONTINUE TO MONITOR.
[2021-04-11 07:01] LABS: HEMATOCRIT 32.4 % (42.0-52.0); HEMOGLOBIN 10.7 gm/dL (14.0-18.0); MCH 31.2 pg (26.0-34.0); MCHC 33.2 g/dL (28.0-37.0); RBC 3.45 mil/uL (4.50-6.00); WBC 9.1 thou/uL (4.0-11.0)
[2021-04-11 07:17] LABS: CALCIUM 8.1 mg/dL (8.5-10.1); CREATININE 0.8 mg/dL (0.7-1.3); POTASSIUM 3.7 mmol/L (3.5-5.1)
[2021-04-11 08:41] VITALS: BP 150/75
[2021-04-11 09:05] VITALS: BP 172/80
--- NOTE | 2021-04-11 11:32 | NUR ---
ASSUMED PT CARE THIS AM. PT IS ALERT & ORIENTED X2,3 AND FORGETFUL AT TIMES. PT IS UP WITH ASSIST X1 WITH GAITBELT AND WALKER. PT HAS IV SITE ON L AC. PT HAS CONDOM CATH IN PLACE. PT IS ACCUCHECK ACHS. PT IS ON ROOM AIR. PHYSICAL THERAPY WORKING WITH PATIENT THIS AM. PT ON THE CHAIR WITH ALARM ON. AWAITING FOR DC ORDERS. WILL CONTINUE TO MONITOR PT. FOLLOW POC.
--- NOTE | 2021-04-11 11:40 | NUR ---
ON-GOING ASSESSMENT: CM REVIEWED CHART AND SPOKE WITH PATIENT AND HIS AT THE BEDSIDE. PT IS HOPEFUL HE CAN DISCHARGE HOME TODAY. CM DISCUSSED POSSIBLE QUALIFICATIONS FOR 5N ACUTE REHAB. PT REPORTS HE DOES NOT FEEL A NEED FOR ACUTE REHAB HE HAS HAD THIS IN THE PAST AND THINKS HE IS FINE TO DISCHARGE HOME AND CONTINUE DOING HIS OUTPATIENT THERAPY STATING HIS PHYSICAL THERAPIST IS VERY FAMILIAR WITH HIM AND HE PREFERS TO CONTINUE THIS. IS AT THE BEDSIDE AND AGREES STATING PT IS MUCH BETTER TODAY. CM DISCUSSED HH AND PT AND STATE THEY THINK HE IS OUT WITHOUT IT AND PREFER TO CONTINUE OUTPATIENT THREAPY. PTS TWO ADULT SONS ALSO LIVE AT THE HOME AND CAN ASSIST NEEDED. PLANS TO LIKELY DISCHARGE HOME TODAY NO NEEDS FROM CM.
[2021-04-11] MEDS ORDERED: CEFPODOXIME PR200 M1 PO (13:21)
[2021-04-11 13:25] VITALS: BP 172/80
== END 2021-04-11 17:26 | disposition home or self-care (01) | DRG 871 ==
LOC: ER 17:35 → EROBS 20:16 → 4S 20:16
PROVIDERS: Nurse Practitioner Family; ADMIT Internal Medicine; ATTEND Internal Medicine
DX: A41.9 Sepsis, unspecified organism (principal); G92 Toxic encephalopathy; N30.01 Acute cystitis with hematuria; I10 Essential (primary) hypertension; E78.5 Hyperlipidemia, unspecified; E11.9 Type 2 diabetes mellitus without complications; G20 Parkinson's disease; R53.81 Other malaise; D69.6 Thrombocytopenia, unspecified; Z20.822 Contact with and (suspected) exposure to COVID-19; H54.62 Unqualified visual loss, left eye, normal vision right eye; I25.10 Atherosclerotic heart disease of native coronary artery without angina pectoris; Z79.82 Long term (current) use of aspirin; Z79.899 Other long term (current) drug therapy; Z90.49 Acquired absence of other specified parts of digestive tract; Z95.1 Presence of aortocoronary bypass graft; Z82.49 Family history of ischemic heart disease and other diseases of the circulatory system
CPT/HCPCS: 10100; 10195

== ENCOUNTER 2021-05-23 21:49 | Inpatient (IN) | payer OTHER, MEDICARE ==
[~2021-05-23] VITALS: Ht 180.3 cm; Wt 93.4 kg
[~2021-05-23 21:49] MED LIST changes: +CEFPODOXIME PR200 M1 PO; -GLUCOPHAGE850 MG PO; +METFORMIN HCL500 MG PO
[2021-05-23 21:50] VITALS: BP 167/80
[2021-05-23] MEDS ORDERED: AZOPT OPHTH1 %/10 M1 OPHTHALMIC (21:57)
[2021-05-23] MEDS ORDERED: COMBIGAN EYE DR10 ML OPHTHALMIC (21:58)
[2021-05-23] MEDS ORDERED: GABAPENTIN600 M1 PO (21:59)
[2021-05-23] MEDS ORDERED: LUMIGAN2.5 M1 OPHTHALMIC (22:01)
[2021-05-23] MEDS ORDERED: PRASUGREL HCL10 MG PO (22:02)
[2021-05-23] MEDS ORDERED: VITAMIN C1000 MG PO (22:04)
[2021-05-23] MEDS ORDERED: CALCIUM500 MG PO (22:04)
[2021-05-23] MEDS ORDERED: MAGNESIUM250 M1 PO (22:04)
[2021-05-23] MEDS ORDERED: METHYL CPG PO (22:05)
[2021-05-23] MEDS ORDERED: ZINC10 MG PO (22:06)
[2021-05-23] MEDS ORDERED: VITAMIN D310 MCG/1 M PO (22:06)
[2021-05-23] MEDS ORDERED: QUESTRAN LIGHT210 GM PO (22:14)
[2021-05-23] MEDS ORDERED: MELATIN3 MG PO (22:15)
[2021-05-23] MEDS ORDERED: CHILDREN'S SLEEP1 MG PO (22:15)
[2021-05-23 22:34] LABS: URINE BILIRUBIN NEGATIVE (Negative); URINE BLOOD 1+ (Negative); URINE CLARITY CLOUDY; URINE COLOR YELLOW; URINE GLUCOSE-RANDOM* NEGATIVE (Negative); URINE KETONES TRACE (Negative); URINE PROTEIN (DIPSTICK) 2+ (Negative); URINE SPECIFIC GRAVITY 1.025 (1.005-1.035); URINE UROBILINOGEN 0.2 E.U./dl (0.2-1.0)
[2021-05-23 22:36] LABS: URINE LEUKOCYTES-REFLEX 3+ (Negative); URINE NITRITE-REFLEX POSITIVE (Negative)
[2021-05-23 22:38] LABS: ABSOLUTE NEUTROPHILS 9.4 thou/uL (1.4-8.2); BASOPHILS 0.5 % (0.0-2.0); EOSINOPHILS 1.2 % (0.0-3.0); HEMOGLOBIN 11.9 gm/dL (14.0-18.0); LYMPHOCYTES 6.6 % (24.0-44.0); MCHC 33.1 g/dL (28.0-37.0); MCV 93.6 fL (80.0-100.0); MONOCYTES 7.3 % (1.0-8.0); PLATELET COUNT 127 thou/uL (150-400); POLYS 84.4 % (36.0-66.0); RBC 3.84 mil/uL (4.50-6.00); WBC 11.2 thou/uL (4.0-11.0)
[2021-05-23 22:41] LABS: CALCIUM 8.4 mg/dL (8.5-10.1); POTASSIUM 4.5 mmol/L (3.5-5.1)
[2021-05-23 22:46] LABS: ALBUMIN 3.5 g/dL (3.4-5.0); TOTAL BILIRUBIN 0.5 mg/dL (0.2-1.0); TOTAL PROTEIN 6.5 g/dL (6.4-8.2)
[2021-05-23 22:52] LABS: BACTERIA-REFLEX >30 Many /HPF (None Seen); CASTS None Seen /LPF (None Seen); CRYSTALS None Seen /LPF (None Seen); MUCUS 0-3 Light strn/LPF (None Seen); SQUAMOUS 0-3 Few /LPF (0-3); URINE WBC-REFLEX >25 Many /HPF (0-5); WBC CLUMPS Moderate (None Seen)
[2021-05-24 02:54] LABS: HEMATOCRIT 32.8 % (42.0-52.0); HEMOGLOBIN 10.5 gm/dL (14.0-18.0); MCH 31.3 pg (26.0-34.0); MCHC 32.1 g/dL (28.0-37.0); MCV 97.3 fL (80.0-100.0); RBC 3.37 mil/uL (4.50-6.00); RDW 15.1 % (10.5-14.5); WBC 9.8 thou/uL (4.0-11.0)
[2021-05-24 03:00] LABS: CALCIUM 8.1 mg/dL (8.5-10.1); POTASSIUM 4.3 mmol/L (3.5-5.1)
--- NOTE | 2021-05-24 04:55 | NUR ---
ALL CHARTING COMPLETED BY STUDENT REVIEWED AND CONFIRMED
[2021-05-24 07:16] VITALS: BP 156/72
[2021-05-24 09:10] VITALS: BP 140/59
--- NOTE | 2021-05-24 12:24 | NUR ---
PT ADMITTED TO FLOOR [facility] 0730. UTI PT PRESENTS ALERT AND ORIENTED BUT FORGETFUL AND DROWSY. VITAL SIGNS STABLE, TAKES MEDS WHOLE WITH NO ISSUE. FALL PRECAUTIONS ACTIVATED, CONSENTS SIGNED, AND ADMIT DATA INPUT. PT AMBULATED TO CHAIR WITH THERAPY AND IS NOW RESTING. CALLS APPROPRIATELY PRIOR TO AMBULATION. WILL CONTINUE TO MONITOR.
[2021-05-24 12:33] VITALS: BP 141/61
--- NOTE | 2021-05-24 15:02 | NUR ---
PT ADMITTED RELATED TO SEPSIS, FEVER, AND WEAKNESS. CM REVIEWED CHART AND SPOKE WITH CARE TEAM. CM MET WITH PT AT BEDSIDE THIS DAY. PT APPEARED TO BE A&O X4. CM ROLE INTRODUCED. PT INDICATED THAT HE RESIDES IN A HOUSE WITH HIS AND TWO ADULT SONS. PT INDICATED 2 STEPS TO ENTER AND NO STEPS INSIDE. PT INDICATED THAT HE HAS A 4WW FOR HOME USE. 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 PT INDICATED HE DOES OP PT AT [facility] TWO TIMES A WEEK. PT INDICATED HE PLANS TO RETURN HOME ONCE MEDICALLY STABLE. CM FOLLOWING REGARDING DC PLANNING.
[2021-05-24 16:00] VITALS: BP 163/48
[2021-05-24 20:30] VITALS: BP 147/64
--- NOTE | 2021-05-25 01:46 | NUR ---
ASSUMED CARE OF PT AT 1900. BEDSIDE REPORT RECIEVED. ABRAHAM ASSESSMENT COMPLETE. PT DENIES ANY PAIN AT THIS TIME. CONDOM CATH IN PLACE BAG BELOW LEVEL OF BLADDER, DRAINING YELLOW URINE. REFILLED PTS WATER. RFA PIV CDI, INFUSING FLUIDS DIRECTED. MEDS ADMINISTERED PER OCT. BS CHECKED AT HS. ALL NEEDS MET, CALL LIGHT IN REACH
[2021-05-25 05:42] LABS: HEMATOCRIT 34.2 % (42.0-52.0); HEMOGLOBIN 11.5 gm/dL (14.0-18.0); MCH 31.3 pg (26.0-34.0); MCHC 33.6 g/dL (28.0-37.0); MCV 93.1 fL (80.0-100.0); RBC 3.67 mil/uL (4.50-6.00); RDW 14.9 % (10.5-14.5); WBC 6.8 thou/uL (4.0-11.0)
[2021-05-25 07:00] VITALS: BP 166/77
[2021-05-25 16:00] VITALS: BP 146/53
--- NOTE | 2021-05-25 19:31 | NUR ---
Assumed pt care at 7am.Pt in bed resting and waiting for breakfast.Assessment completed.vss. Assisted with tray setup at all meals. Good appetite. Pt took shower with occ. therapist assistance. Adequate u/o noted per external cath. No verbal c/o. Pt here and updates given. Report off to ania rn.
[2021-05-25 20:01] VITALS: BP 154/65
--- NOTE | 2021-05-25 23:04 | NUR ---
PT ALERT AND ORIENTED X 3, FORGETFUL. IV FLUIDS DISCONTINUED ORDERED. SALINE LOCK PATENT AND INTACT TO RFA. BLOOD SUGAR 150 AT HS. NO INSULIN NEEDED. CONDOM CATH INTACT WITH CLEAR YELLOW URINE. PT DENIES PAIN OR DISCOMFORT. PT APPEARS TO BE SLEEPING ON HOURLY ROUNDS.
[2021-05-26 07:15] VITALS: BP 171/78
[2021-05-26 12:02] VITALS: BP 171/78
--- NOTE | 2021-05-26 12:04 | NUR ---
CARE TEAM INDICATED THAT PT IS MEDICALLY STABLE TO DC HOME THIS DAY. PT AND SPOUSE ARE RECEPTIVE TO SERVICES UPON DC. PT HAD USED [facility] IN THE PAST AND ASKED TO USE THEM AGAIN. REFERRAL SENT. IT IS ANTICPATED THAT THEY WILL BE ABLE TO ACCEPT PT. PT'S SPOUSE TO PROVIDE TRANSPORT HOME THIS DAY. NO OTHER CM INTERVENTION INDICATED. CASE CLOSED.
[2021-05-26] MEDS ORDERED: CEPHALEXIN500 MG PO (13:18)
[2021-05-26] MEDS ORDERED: METFORMIN HCL500 MG PO (13:19)
[2021-05-26 14:22] VITALS: BP 171/78
--- NOTE | 2021-05-26 14:31 | NUR ---
ASSUMED CARE OF PT AT 0700. THROUGHOUT THE DAY, PT RESTED IN ROOM WITH NO COMPLAINTS, VSS. FAMILY CAME IN MIDDAY TO ASSIST WITH DISCHARGE. PT IS PLEASANTLY CONFUSED BUT ORIENTED X2-3. FALL PRECAUTIONS IN PLACE, THERAPY WORKED WITH HIM AND HELPED HIM TO THE CHAIR. TALKED WITH FAMILY ABOUT HOME HEALTH AND EDUCATED THEM ON DC INSTRUCTIONS PRIOR TO LEAVING. PT CLEANED UP AND CHANGED, GIVEN ALL AFTERNOON MEDICATIONS PRIOR TO DISCHARGE. DISCHARGING HOME NOW WITH FAMILY, FAMILY WILL FOLLOW UP WITH HOME HEALTH PER THEIR DISCRETION.
== END 2021-05-26 14:35 | disposition home health service (06) | DRG 872 ==
LOC: ER 21:49 → 4W 23:07 → EROBS 23:07 → 4W 05-24 07:19
PROVIDERS: Hospitalist; Nurse Practitioner; ADMIT Hospitalist; ATTEND Hospitalist
DX: A41.9 Sepsis, unspecified organism (principal); N39.0 Urinary tract infection, site not specified; E11.9 Type 2 diabetes mellitus without complications; D69.6 Thrombocytopenia, unspecified; B96.1 Klebsiella pneumoniae [K. pneumoniae] as the cause of diseases classified elsewhere; E78.5 Hyperlipidemia, unspecified; H91.93 Unspecified hearing loss, bilateral; H54.62 Unqualified visual loss, left eye, normal vision right eye; I10 Essential (primary) hypertension; K58.9 Irritable bowel syndrome, unspecified; I89.0 Lymphedema, not elsewhere classified; G20 Parkinson's disease; Z20.822 Contact with and (suspected) exposure to COVID-19; Z87.440 Personal history of urinary (tract) infections; Z86.19 Personal history of other infectious and parasitic diseases; Z86.16 Personal history of COVID-19; Z90.49 Acquired absence of other specified parts of digestive tract; Z95.5 Presence of coronary angioplasty implant and graft; Z95.1 Presence of aortocoronary bypass graft; Z79.899 Other long term (current) drug therapy; Z79.82 Long term (current) use of aspirin; Z79.84 Long term (current) use of oral hypoglycemic drugs; Z23 Encounter for immunization
CPT/HCPCS: 10040

== ENCOUNTER 2021-07-05 04:14 | Emergency (ER) | payer OTHER, MEDICARE ==
[~2021-07-05] VITALS: Ht 180.3 cm; Wt 120.7 kg
[~2021-07-05 04:14] MED LIST changes: +AZOPT OPHTH1 %/10 M1 OPHTHALMIC; +CALCIUM500 MG PO; +CEPHALEXIN500 MG PO; +CHILDREN'S SLEEP1 MG PO; +COMBIGAN EYE DR10 ML OPHTHALMIC; +GABAPENTIN600 M1 PO; +LUMIGAN2.5 M1 OPHTHALMIC; +MAGNESIUM250 M1 PO; +MELATIN3 MG PO; +METHYL CPG PO; +PRASUGREL HCL10 MG PO; +QUESTRAN LIGHT210 GM PO; +VITAMIN C1000 MG PO; +VITAMIN D310 MCG/1 M PO; +ZINC10 MG PO
[2021-07-05] MEDS ORDERED: METFORMIN HCL850 MG PO (04:32)
[2021-07-05] MEDS ORDERED: NITROSTAT0.4 M1 (04:35)
[2021-07-05] MEDS ORDERED: RANOLAZINE ER500 MG PO (04:35)
[2021-07-05] MEDS ORDERED: ASCORBIC ACID500 MG PO (04:37)
[2021-07-05] MEDS ORDERED: QUERCETIN DIHYDR1 GM PO (04:39)
[2021-07-05] MEDS ORDERED: CEPHALEXIN500 MG PO (04:41)
[2021-07-05] MEDS ORDERED: TYLOPHEN500 MG PO (04:42)
[2021-07-05 05:30] LABS: URINE BILIRUBIN NEGATIVE (Negative); URINE BLOOD 2+ (Negative); URINE CLARITY CLOUDY; URINE COLOR YELLOW; URINE GLUCOSE-RANDOM* NEGATIVE (Negative); URINE KETONES TRACE (Negative); URINE NITRITE-REFLEX NEGATIVE (Negative); URINE PROTEIN (DIPSTICK) 1+ (Negative); URINE SPECIFIC GRAVITY 1.025 (1.005-1.035); URINE UROBILINOGEN 0.2 E.U./dl (0.2-1.0)
[2021-07-05 05:30] LABS: ABSOLUTE NEUTROPHILS 8.8 thou/uL (1.4-8.2); BASOPHILS 0.6 % (0.0-2.0); EOSINOPHILS 0.6 % (0.0-3.0); HEMATOCRIT 32.7 % (42.0-52.0); HEMOGLOBIN 11.3 gm/dL (14.0-18.0); MCH 32.4 pg (26.0-34.0); MCHC 34.5 g/dL (28.0-37.0); MCV 93.8 fL (80.0-100.0); MONOCYTES 6.5 % (1.0-8.0); PLATELET COUNT 165 thou/uL (150-400); POLYS 87.3 % (36.0-66.0); RBC 3.49 mil/uL (4.50-6.00); RDW 15.3 % (10.5-14.5); WBC 10.1 thou/uL (4.0-11.0)
[2021-07-05 05:31] LABS: URINE LEUKOCYTES-REFLEX 3+ (Negative)
[2021-07-05 05:31] LABS: CALCIUM 8.5 mg/dL (8.5-10.1); CREATININE 1.1 mg/dL (0.7-1.3); POTASSIUM 4.5 mmol/L (3.5-5.1)
[2021-07-05 05:41] LABS: CASTS None Seen /LPF (None Seen); CRYSTALS None Seen /LPF (None Seen); MUCUS 4-6 Moderate strn/LPF (None Seen); SQUAMOUS 0-3 Few /LPF (0-3); URINE RBC >20 Many /HPF (NONE SEEN); URINE WBC-REFLEX >25 Many /HPF (0-5); WBC CLUMPS Packed (None Seen)
[2021-07-05] MEDS ORDERED: CIPROFLOXACIN500 M1 PO (05:52)
[2021-07-05 06:06] VITALS: BP 105/30
== END 2021-07-05 06:30 | disposition home or self-care (01) ==
LOC: ER 04:14
PROVIDERS: Emergency Medicine
DX: N39.0 Urinary tract infection, site not specified (principal); G20 Parkinson's disease; Z79.891 Long term (current) use of opiate analgesic; Z79.899 Other long term (current) drug therapy; Z79.82 Long term (current) use of aspirin; Z79.84 Long term (current) use of oral hypoglycemic drugs; Z79.1 Long term (current) use of non-steroidal anti-inflammatories (NSAID)